=== PATIENT | female | born 1975 | race Caucasian/White ===

== ENCOUNTER 2017-06-16 12:56 | Emergency (ER) | payer MEDICAID ==
[~2017-06-16] VITALS: Ht 170.2 cm; Wt 88.5 kg
[~2017-06-16 12:56] MED LIST: ALBUTEROL2 PUFFS/17 IN; ATIVAN0.5 MG PO; AZITHROMYCIN250 M1 PO; B12 INJ.,1000 MCG/M IM; FLEXERIL10 M1 PO; FLEXERIL10 MG PO; IBUPROFEN400 MG PO; LEXAPRO 10 MG T10 MG PO; LORTAB 5/500 501 TAB PO; MECLIZINE 25MG25 MG PO; MEDROL 4MG. DOSE4 MG PO; PREDNISONE 20MG20 MG PO; SEPTRA DS 800 M1 TAB PO; ULTRAM50 MG PO; VICODIN 5/500 T1 TAB PO; VOLTAREN75 MG PO
--- OUTSIDE RECORDS SUMMARY | 2017-06-16 13:08 | External Medical Summary Rpt | CCD ---
Author Author , LYLY CAMACHO Address Unknown Phone [email or web address] Immunization Name Date Rout CVX Reac Dose Comm Prov Is Faci e tion ent ider Refu lity Give sed n Hep 07-2 43 999 Hist H149 No H149 B, 9-20 oric adul 11 al t Info rmat ion - Sour ce Unsp ecif ied
--- OUTSIDE RECORDS SUMMARY | 2017-06-16 13:08 | External Medical Summary Rpt ---
Author Author JANICE Jasso, [employer] Organization [employer] Address Unknown Phone Unavailable
--- OUTSIDE RECORDS SUMMARY | 2017-06-16 13:08 | External Medical Summary Rpt | CCD ---
Author Author , LYLY CAMACHO Address Unknown Phone [email or web address] Immunization Name Date Rout CVX Reac Dose Comm Prov Is Faci e tion ent ider Refu lity Give sed n Hep 07-2 43 999 Hist H149 No H149 B, 9-20 oric adul 11 al t Info rmat ion - Sour ce Unsp ecif ied
--- OUTSIDE RECORDS SUMMARY | 2017-06-16 13:08 | External Medical Summary Rpt | CCD ---
Author Author , JANICE CAMACHO Address Unknown Phone [email or web address] Providers Care Doctor Of Radiology Name Role Phone [employer] Unavailable Unavailable INC, [employer] Unavailable Unavailable INC, [employer] HARI NORIEGA Unavailable Unavailable HARI NORIEGA Unavailable Unavailable [facility] [place], [facility] Un[place] [facility]available [place], [facility] JOYA HINSON Unavailable Unavailable [facility] Unavailable Unavailable INC, [facility] Unavailable Unavailable [facility]OSPITAL P, [facility], Unavailable [facility]available [facility] Unavailable [facility]available [facility], [facility] Unavailable Unavailable HOLDINGS, [facility] Unavailable Unavailable HOLDINGS, [facility] Purpose Continuity of Care Document - 08-14-2014 through 2016 Problems Code Diagnosis DOS Provider Status [id number] PAIN IN 01-31-2017 [facility] M7989 OTHER 01-31-2017 [facility] SPECIFIED [facility] SOFT TISSUE IM[facility] ASS DISORDERS [id number] SPRAIN 01-31-2017 [facility] LIGAMENT INC RIGHT ANKLE INITIAL ENC [id number] SPRAIN 01-31-2017 [employer] LIGAMENT RT S INC ANKLE INITIAL ENCNTR J0190 ACUTE 12-04-2016 [facility] SINUSITIS UNSPECIFIED J069 ACUTE UPPER 12-04-2016 [facility] RESPIRATORY INFECTION UNSPECIFIED E559 VITAMIN D 10-06-2016 [facility] DEFICIENCY [facility] UNSPECIFIED HOLDINGS E785 HYPERLIPIDE 10-06-2016 [facility] UNSPECIFIED [place] N910 PRIMARY 10-06-2016 [facility] [place] J0110 ACUTE 07-21-2016 [facility] SINUSITIS GROUP UNSPECIFIED 84678 HORDEOLUM 08-14-2014 [facility] P Medications Na ND Rx Da Fi Fi Am Da Di Ph RX Ph St me C No te ll ll ou ys ag ar # ys at rm s nt no ma ic us Or Da si cy ia de te s n re d ES 65 08 09 30 30 00 EA Ac CI 86 -1 -[address] ti TA 20 0- 1- 00 00 SI ve LO 37 20 20 49 DE MD 50 17 17 31 AM 1 27 PH AR 20 MA CY MG OF TA CY BL NT ET HI AN A IN C ES 65 06 07 30 30 00 EA Ac CI 86 -3 -[address] ti TA 20 0- 1- 00 00 SI ve LO 37 20 20 49 DE MD 50 17 17 31 AM 1 27 PH AR 20 MA CY MG OF TA CY BL NT ET HI AN A IN C AZ 64 04 05 6. 5 00 EA Ac IT 67 -1 -[address] ti HR 90 7- 2- 0 00 SI ve OM 96 20 20 48 DE YC 10 17 17 39 IN 5 38 PH AR 25 MA 0 CY MG OF TA CY BL NT ET HI AN A IN C ME 00 04 05 21 6 00 EA Ac TH 78 -1 -[address] ti YL 15 7- 2- 00 00 SI ve MD 02 20 20 48 DE ED 20 17 17 39 NI 7 39 PH SO AR LO MA NE CY 4 OF MG CY NT DO HI SE AN PK A IN C MD 00 04 05 18 6 00 EA Ac OM 60 -1 -[address] ti ET 31 7- 2- 00 00 SI ve GREGORY 58 20 20 0 48 DE ZI 65 17 17 39 NE 8 40 PH -D AR M MA SY CY RU P OF CY NT HI AN A IN C 69 04 05 8. 28 00 EA Ac T 45 -1 -[address] ti D2 20 9- 2- 0 00 SI ve 15 20 20 47 DE 1. 12 17 17 64 25 0 95 PH AR MG MA CY (5 0, OF 00 CY 0 NT UN HI IT AN ) A IN C ES 65 04 05 30 30 00 EA Ac CI 86 -0 -[address] ti TA 20 3- 5- 00 00 SI ve LO 37 20 20 47 DE MD 50 17 17 64 AM 1 96 PH AR 20 MA CY MG OF TA CY BL NT ET HI AN A IN C 69 03 04 8. 28 00 EA Ac T 45 -1 -[address] ti D2 20 3- 7- 0 00 SI ve 15 20 20 47 DE 1. 12 17 17 64 25 0 95 PH AR MG MA CY (5 0, OF 00 CY 0 NT UN HI IT AN ) A IN C SI 16 02 03 30 30 00 EA Ac MV 71 -2 -[address] ti 40 3- 7- 00 00 SI ve TA 68 20 20 47 DE TI 30 17 17 73 N 3 77 PH 20 AR MA MG CY TA OF BL CY ET NT HI AN A IN C ES 65 02 03 30 30 00 EA Ac CI 86 -1 -[address] ti TA 20 7- 0- 00 00 SI ve LO 37 20 20 47 DE MD 50 17 17 64 AM 1 96 PH AR 20 MA CY MG OF TA CY BL NT ET HI AN A IN C AC 60 02 03 50 10 00 EA Ac YC 50 -1 -[address] ti LO 55 7- 0- 00 00 SI ve 30 20 20 47 DE R 70 17 17 64 80 1 97 PH 0 AR MG MA CY TA BL OF ET CY NT HI AN A IN C 69 02 03 8. 28 00 EA Ac T 45 -1 -[address] ti D2 20 7- 0- 0 00 SI ve 15 20 20 47 DE 1. 12 17 17 64 25 0 95 PH AR MG MA CY (5 0, OF 00 CY 0 NT UN HI IT AN ) A IN C ES 65 01 02 30 30 00 EA Ac CI 86 -1 -[address] ti TA 20 3- 3- 00 00 SI ve LO 37 20 20 47 DE MD 50 17 17 23 AM 1 93 PH AR 20 MA CY MG OF TA CY BL NT ET HI AN A IN C Procedures Procedure DOS Code Location Performer Comment RADEX 09601 J[facility] ANKLE [facility] COMPLETE INC INC MINIMUM 3 VIEWS THERAPEUT 26462 JW ESC[facility] IC 7 [facility] PROPHYLAC INC INC TIC/DX INJECTION SUBQ/IM ANKLE L4350 [facility] ADVANCED CONTROL 7 TECHNOLOG TECHNOLOG ORTHOSIS IES INC IES INC STIRRUP STYL RIGID PREFAB GONADOTRO 23038 LAB [facility] LAB RAVINDER PIN 7 [facility] FOLLICLE HOLDINGS [place] [address] COMBINED COMBINED TRIIODOTH 7 PHYSICIAN PHYSICIAN YRONINE S LA S LA T3 TOTAL TT3 GENERAL 83115 COMBINED COMBINED HEALTH 7 PHYSICIAN PHYSICIAN PANEL S LA S LA LIPID 32007 COMBINED COMBINED PANEL 7 PHYSICIAN PHYSICIAN S LA S LA SEDIMENTA 64740 COMBINED COMBINED TION RATE 7 PHYSICIAN PHYSICIAN [place] [address] COMBINED COMBINED FREE 7 PHYSICIAN PHYSICIAN THYROXINE S LA S LA 25 20687 LAB [facility]ER LAB RAVINDER HYDROXY 7 ARTEMIO ARTEMIO INCLUDES HOLDINGS HOLDINGS FRACTIONS IF PERFORMED CYANOCOBA 32499 COMBINED COMBINED PERI 7 PHYSICIAN PHYSICIAN VITAMIN S LA S LA B-12 GONADOTRO 91870 LAB RAVINDER LAB RAVINDER PIN 7 ARTEMIO ARTEMIO LUTEINIZI HOLDINGS HOLDINGS NG HORMONE BLEPHAROT 90812 JW ESCALERA BREANN 4 [facility] DRAINAGE INC INC ABSCESS EYELID Encounters Encounter Start End Date Code Location Performer Type Date OFFICE 57074 JW ANN 7 7 [facility] T VISIT INC 15 MINUTES HOSPITAL JW Catalan 7 [facility] OUTPATIEN INC T OFFICE 35961 HARI ANN 7 7 T VISIT 15 MINUTES OFFICE 64618 [facility] JOYA OUTPATIKEVIN 6 6 PHYSICIAN T VISIT S GROUP 25 MINUTES HOSPITAL JW Snowden 4 [facility] OUTPATIEN INC T EMERGENCY 45590 JW Snowden 4 [facility] DEPARTMEN INC T VISIT HIGH/URGE NT SEVERITY EMERGENCY 91745 JW Snowden 4 [facility] T VISIT P LOW/MODER SEVERITY
--- OUTSIDE RECORDS SUMMARY | 2017-06-16 13:08 | External Medical Summary Rpt | CCD ---
Author Author , JANICE CAMACHO Address Unknown Phone [email or web address] Care Team Providers Care Peanut Grader Name Role Phone [employer] Unavailable Unavailable INC, [employer] Unavailable Unavailable INC, [employer] HARI NORIEGA Unavailable Unavailable HARI NORIEGA Unavailable Unavailable [facility] [place]available [place], [facility] Unavailable [place]available [place], [facility] JOYA HINSON Unavailable Unavailable [facility] Unavailable Unavailable INC, [facility] Unavailable Unavailable HOSPITAL P, [facility] P [facility], Unavailable Unavailable [facility] Unavailable Unavailable IM[facility]ING [facility], [facility] Unavailable Unavailable HOLDINGS, [facility] Unavailable Unavailable HOLDINGS, [facility] Purpose Continuity of Care Document - 08-14-2014 through 2016 Problems Code Diagnosis DOS Provider Status [id number] PAIN IN 01-31-2017 [facility] M7989 OTHER 01-31-2017 [facility] SPECIFIED [facility] SOFT TISSUE IMAGING ASS DISORDERS [id number] SPRAIN 01-31-2017 [facility] LIGAMENT INC RIGHT ANKLE INITIAL ENC Q23422P SPRAIN 01-31-2017 [employer] LIGAMENT RT S INC ANKLE INITIAL ENCNTR J0190 ACUTE 12-04-2016 [facility] SINUSITIS UNSPECIFIED J069 ACUTE UPPER 12-04-2016 [facility] RESPIRATORY INFECTION UNSPECIFIED E559 VITAMIN D 10-06-2016 [facility] DEFICIENCY [facility]IO UNSPECIFIED HOLDINGS E785 HYPERLIPIDE 10-06-2016 [facility] UNSPECIFIED [place] N910 PRIMARY 10-06-2016 [facility] [place] J0110 ACUTE 07-21-[address] [facility] FRONTAL PHYS[facility]IANS SINUSITIS GROUP UNSPECIFIED 20738 HORDEOLUM 08-14-2014 [facility] P Medications Na ND Rx Da Fi [...] ve LO 37 20 20 49 DE IN 50 17 17 31 AM 1 27 PH AR 20 MA CY MG OF TA CY BL NT ET HI AN A IN C ES 65 06 07 30 30 00 EA Ac CI 86 -3 -[address] ti TA 20 0- 1- 00 00 SI ve LO 37 20 20 49 DE IN 50 17 17 31 AM 1 27 [...] 15 7- 2- 00 00 SI ve IN 02 20 20 48 DE ED 20 17 17 39 NI 7 39 PH SO AR LO MA NE CY 4 OF MG CY NT DO HI SE AN PK A IN C IN 00 04 05 18 6 00 EA [...] ve LO 37 20 20 47 DE IN 50 17 17 64 AM 1 96 [...] ve LO 37 20 20 47 DE IN 50 17 17 64 AM 1 96 [...] ve LO 37 20 20 47 DE IN 50 17 17 23 AM 1 93 PH AR 20 MA CY MG OF TA CY BL NT ET HI AN A IN C Procedures Procedure DOS Code Location Performer Comment RADEX 33145 JW ESC[facility] ANKLE 7 [facility] COMPLETE INC INC MINIMUM 3 VIEWS THERAPEUT 93184 JW ESCALERA IC 7 [facility] PROPHYLAC INC INC TIC/DX INJECTION SUBQ/IM ANKLE L4350 [facility]ANCED ADVANCED CONTROL 7 TECHNOLOG TECHNOLOG ORTHOSIS IES INC IES INC STIRRUP STYL RIGID PREFAB GONADOTRO 07935 LAB [facility] LAB RAVINDER PIN 7 ART[facility] ARTEMIO FOLLICLE HOLDINGS [place] [address] COMBINED COMBINED TRIIODOTH 7 PHYSICIAN PHYSICIAN YRONINE S LA S LA T3 TOTAL TT3 GENERAL 48512 COMBINED COMBINED HEALTH 7 PHYSICIAN PHYSICIAN PANEL S LA S LA LIPID 36577 COMBINED COMBINED PANEL 7 PHYSICIAN PHYSICIAN S LA S LA SEDIMENTA 82038 COMBINED COMBINED TION RATE 7 PHYSICIAN PHYSICIAN RBC [place] [address] COMBINED COMBINED FREE 7 PHYSICIAN PHYSICIAN THYROXINE S LA S LA 25 [address]005 LAB [facility] LAB RAVINDER HYDROXY 7 ARTEMIO ARTEMIO INCLUDES HOLDINGS HOLDINGS FRACTIONS IF PERFORMED CYANOCOBA 18218 COMBINED COMBINED PERI 7 PHYSICIAN PHYSICIAN VITAMIN S LA S LA B-12 GONADOTRO 22745 LAB RAVINDER LAB RAVINDER PIN 7 ARTEMIO ARTEMIO LUTEINIZI HOLDINGS HOLDINGS NG HORMONE BLEPHAROT 54876 JW ESCALERA BREANN 4 [facility] DRAINAGE INC INC ABSCESS EYELID Encounters Encounter Start End Date Code Location Performer Type Date OFFICE 99400 JW ANN 7 7 [facility] T VISIT INC 15 MINUTES HOSPITAL JW Catalan 7 [facility] OUTPATIEN INC T OFFICE 88786 HARI ANN 7 7 T VISIT [address] MIN[address]ES [address] [facility] [facility] JOYA OUTPATIKEVIN 6 6 PHYSICIAN T VISIT S GROUP 25 MINUTES HOSPITAL JW Snowden 4 [facility] OUTPATIEN INC T EMERGENCY 82082 JW Snowden 4 [facility] DEPARTMEN INC T VISIT HIGH/URGE NT SEVERITY EMERGENCY 40406 JW Snowden 4 [facility] T VISIT P LOW/MODER SEVERITY
[2017-06-16] MEDS ORDERED: TESSALON PERLE100 M1 PO (14:01)
[2017-06-16] MEDS ORDERED: ZITHROMAX Z-PA250 M2 PO (14:01)
--- NOTE | 2017-06-16 14:01 | Urgent Treatment Center Report ---
History of Present Issue Date/Time Seen by Provider 06/16/17 1351 Visit Reason Pt arrived:Walked Presenting Problem:PT C/O CHEST AND HEAD CONGESTION, CHILLS , BODY ACHES. Location if Accident: Onset of symptoms date/time:/ or onset unknown for:MEDICAL HX UNKNOWN Have you (or family members/close friends) recently traveled outside the [place]? N If Yes, where/when: Have you had exposure to infectious disease within the past month? TB? Other? Specify: Source patient, RN notes reviewed Exam Limitations no limitations Comment 42-year-old female presents for complaints of chills, cough, nasal congestion, and body aches for 2-3 days. ALLERGIES Coded Allergies: Penicillins (Mild, 01/31/17) Home Medications Active Scripts SULFAMETHOXAZOLE/TRIMETHOPRIM (Sulfamethoxazole-Tmp Ds Tablet) 1 TAB PO BID #14 TAB Prov: 08/14/14 Reported Medications Escitalopram Oxalate (Lexapro 10MG) 10 MG PO DAILY Lorazepam (Ativan 0.5MG) 0.5 MG PO NEEDED Cyclobenzaprine Hcl (Flexeril) 10 MG PO NEEDED History Medical History General CAD? No Angina: Yes MA: No Hypertension? No Hyperlipidemia? Yes CHF? No DVT? No PE? No COPD? No Asthma? No Anemia? No GERD? No Gastric ulcers? No GI Bleed? No Hernia? No Thyroid Problems? No Hypothyroidism? No CVA? No Seizures? No Diabetes? No Renal Insuffiency? No UTI? No Stones? No BPH? No GB Disease: No Nephritic Syndrome? No Asplenia? No Hepatitis? No Sickle Cell Disease? No Arthritis? No Migraines? No Cataracts? No Glaucoma? No MRSA? No HIV? No TB? No Anxiety? No Depression? No Cancer? No Immunization HX DT/Tetanus 5-10 YRS Surgical Hx Previous Surgery?Y Tubal Ligation [employer] Hx LMP 1 Week Ago Social History Smoking Hx Smoker: Current Every Day Smoker Tobacco: Yes Type Cigarettes Packs/day < 1 Pack Alcohol Alcohol: No Review of Systems All Other Systems Reviewed and Negative ENT see HPI, nose discharge, nose congestion. Respiratory see HPI, cough Physical Exam Vital Signs Vital Signs Date Time Temp Pulse Resp B/P Pulse O2 O2 Flow FiO2 Ox Delivery Rate 06/16 1310 97.6 65 20 161/110 98 - WBC >12,000 or <4,000 or 10% bands? 2 or more SIRS Criteria Met? B/P:161/110 MAP:127 Creatinine >2.0? UA output<0.5ml/kg/hr for 2 hrs? Platelet count >100,000? Lactate >2.0mmol/1? INR >1.2 or PTT > than 60 sec? Evidence of Organ Dysfunction? Provider documented clinical suspician of infection? Sepsis Criteria Count: 1 Sepsis Risk: General Appearance normal appearance, no apparent distress Eye Exam - bilateral eye normal exam, bilateral eye PERRL, bilateral eye EOMI Ear, Nose, Throat hearing grossly normal, sinus pain/drainage, nasal congestion, pharyngeal erythema Neck normal inspection, full range of motion Respiratory Status Yes: trachea midline, chest symmetrical, non tender chest. No: respiratory distress. Lung Sounds posterior: decreased breath sounds. bilateral: normal breath sounds, lungs clear. left: decreased breath sounds. right: normal breath sounds, lungs clear. Cardiovascular normal exam, regular rate/rhythm Peripheral Pulses Pulses normal No Neurologic alert, normal exam, oriented x 3 Medical Decision Making LABS/Meds/Orders Pt receiving controlled substance in ED? No Results/Orders Orders Procedure Date/time Status CHEST(2 VIEWS-NOT PORTABLE) 06/16 1334 Active XRAY/CT/US XRAY/CT/US XRAY chest XR interpretation by reviewed by me (dr gonzalez) Xray Results normal/NAD Comment neg mac gonzalez Departure Departure Time of Disposition 1358 Disposition DC Home or Self Care(routine) Clinical Impression Primary Impression: Acute bronchitis Qualifiers: Bronchitis organism: unspecified organism Qualified Code: J20.9 - Acute bronchitis, unspecified Condition STABLE Referrals Raymon Heart MD (Family) Patient Instructions Acute Bronchitis Additional Instructions Medications as ordered rest Tylenol or Motrin as needed for pain or fever If symptoms worsen return or be seen in the ER Follow-up with primary care on Sunday if no improvement Discharge Counseling Counseled pt/family regarding diagnosis, test results, medications/RX, home care, follow up needs Prescriptions Current Visit Scripts Azithromycin (Zithromax) 250 MG PO DAILY #6 TAB 2 tablets day one then one tablet day 2 through 5. Benzonatate (Tessalon Perle) 100 MG PO BIDP PRN cough 3 Days at 1403
[2017-06-16 14:05] VITALS: BP 161/110
--- NOTE | 2017-06-16 16:11 | RADIOLOGY REPORT PS360 ---
CHEST(2 VIEWS-NOT PORTABLE) HISTORY: cough ORDERING PHYSICIAN: Antonia Piña PATIENT AGE: 42 years COMPARISON: None available FINDINGS: The cardiomediastinal silhouette and pulmonary vascularity are within normal limits. The lungs are clear without infiltrates, suspicious nodules, or pleural effusions. No acute bony abnormalities. IMPRESSION: Negative chest, no acute finding
[2017-06-21] MEDS ORDERED: ESCITALOPRAM20 MG NG (13:50)
[2017-06-21] MEDS ORDERED: MEDROL 4MG. DOSE4 MG PO (16:32)
== END 2017-06-16 14:05 | disposition home or self-care (01) ==
LOC: UTC 12:56
DX: J20.9 Acute bronchitis, unspecified (principal); F17.210 Nicotine dependence, cigarettes, uncomplicated